=== PATIENT | female | born 1980 | race Caucasian/White ===

== ENCOUNTER 2021-11-10 18:04 | Inpatient (IN) | payer BC ==
[2021-11-10 20:51] LABS: BASO % 0.4 % (0-2.0); EOS % 3.9 % (0-4.5); HEMATOCRIT 30.7 % (32.4-45.2); HEMOGLOBIN 10.3 GM/dL (10.7-15.3); LYMPH % 18.1 % (8-40); MCH 27.8 pg (25.7-33.7); MCHC 33.4 g/dl (32.0-36.0); MEAN CELL VOLUME 83.2 fl (80-96); MEAN PLT VOLUME 9.9 fl (7.5-11.1); MONO % 6.6 % (3.8-10.2); PLATELET COUNT 195 10^3/uL (134-434); RBC 3.69 M/mm3 (3.60-5.2); RDW 14.4 % (11.6-15.6); WHITE BLOOD COUNT 9.8 K/mm3 (4.0-10.0)
[2021-11-10 20:58] LABS: INR 0.93 (0.83-1.09); PROTHROMBIN TIME (PATIENT) 10.7 SEC (9.7-13.0)
[2021-11-10 21:01] LABS: ACTIVATED PTT 26.2 SECONDS (25.2-36.5)
[2021-11-10 21:04] LABS: CALCIUM 8.3 mg/dL (8.5-10.1)
[2021-11-10 21:09] LABS: CREATININE 0.5 mg/dL (0.55-1.3)
[2021-11-10] MEDS ORDERED: ONDANSETRON 4 MG/2 ML VIAL IVPUSH PRN (21:11)
[2021-11-10] MEDS ORDERED: morphine SULFATE/PF 1 MG/2 ML (2cc Syringe - QUVA) ONE (21:19)
[2021-11-10] MEDS ORDERED: ceFAZolin SODIUM 1 GM VIAL ONE (21:38)
[2021-11-10] MEDS ORDERED: PHENYLEPHRINE HCL 10 MG/1 ML SINGLE DOSE VIAL ONE (21:42)
[2021-11-10] MEDS ORDERED: OXYTOCIN 10 UNITS/ML VIAL ONE ×2 (22:00)
[2021-11-10] MEDS ORDERED: ONDANSETRON 4 MG/2 ML VIAL IVPB PRN (22:49)
[2021-11-10] MEDS ORDERED: oxyCODONE HCL 5 MG TABLET PO PRN (22:49)
[2021-11-10] MEDS ORDERED: IBUPROFEN 800 MG/8 ML IJ IVPB PRN (22:49)
[2021-11-10] MEDS ORDERED: SENNOSIDES/DOCUSATE COMBO (SENNA PLUS) TABLET (UD) PO PRN (22:49)
[2021-11-10 23:05] VITALS: BMI 31.1
[2021-11-11] MEDS ORDERED: OXYTOCIN 20 UNITS in 0.9% NS 20 UNIT/1,000 ML INFUS.BAG IV ONE (00:17)
[2021-11-11] MEDS: OXYTOCIN 20 UNITS in 0.9% NS 20 UNIT/1,000 ML INFUS.BAG IV SCH ×3 (00:21→23:37)
[2021-11-11] MEDS: CEFAZOLIN 2 GM in DEXTROSE 5%-WATER - 50 ML IVPB SCH ×2 (04:53→12:57)
[2021-11-11] MEDS: ACETAMINOPHEN 1000 MG/100 ML BAG IVPB PRN ×2 (06:32→14:37)
[2021-11-11 09:24] LABS: BASO % 0.3 % (0-2.0); EOS % 2.5 % (0-4.5); HEMATOCRIT 28.5 % (32.4-45.2); HEMOGLOBIN 9.5 GM/dL (10.7-15.3); LYMPH % 8.5 % (8-40); MCH 27.8 pg (25.7-33.7); MCHC 33.3 g/dl (32.0-36.0); MEAN CELL VOLUME 83.3 fl (80-96); MEAN PLT VOLUME 9.9 fl (7.5-11.1); MONO % 4.9 % (3.8-10.2); NEUT % 83.8 % (42.8-82.8); PLATELET COUNT 167 10^3/uL (134-434); RBC 3.42 M/mm3 (3.60-5.2); RDW 13.9 % (11.6-15.6); WHITE BLOOD COUNT 10.8 K/mm3 (4.0-10.0)
[2021-11-11 12:11] LABS: SARS-CoV-2 NAA Not Detected (Not Detected)
[2021-11-11] MEDS: SIMETHICONE 80 MG TAB.CHEW (FP) PO PRN (20:45)
[2021-11-11] MEDS ORDERED: BISACODYL 10 MG SUPP.RECT RC PRN (22:49)
[2021-11-11] MEDS: ACETAMINOPHEN 325 MG TABLET (FP) PO PRN (22:51)
[2021-11-11] MEDS: IBUPROFEN 600 MG TABLET (FP) PO PRN (23:39)
[2021-11-12] MEDS: SIMETHICONE 80 MG TAB.CHEW (FP) PO PRN (04:33)
[2021-11-12] MEDS: IBUPROFEN 600 MG TABLET (FP) PO PRN (04:33)
[2021-11-12] MEDS: ACETAMINOPHEN 325 MG TABLET (FP) PO PRN (12:06)
[2021-11-12 12:29] VITALS: BP 131/80; PULSE 64; TEMP 98.4
== END 2021-11-12 13:20 | disposition home or self-care (01) | DRG 788 ==
LOC: JDEL 18:04 → JLDR 19:45 → J3W 11-11 01:10
PROVIDERS: ADMIT Specialist; ATTEND Specialist
PROC: 10D00Z1 Extraction of Products of Conception, Low, Open Approach (ICD-10-PCS; principal; 2021-11-10)
PROC: 0DNW0ZZ Release Peritoneum, Open Approach (ICD-10-PCS; 2021-11-10)
DX: O34.13 Maternal care for benign tumor of corpus uteri, third trimester (principal); O99.62 Diseases of the digestive system complicating childbirth; K66.0 Peritoneal adhesions (postprocedural) (postinfection); Z3A.38 38 weeks gestation of pregnancy; Z37.0 Single live birth; O75.89 Other specified complications of labor and delivery; R03.0 Elevated blood-pressure reading, without diagnosis of hypertension
CPT/HCPCS: 36415; 80048; 85025; 85610; 85730; 86780; 86850; 86900; 86901; 88307-TC; C9803-CS; U0003; U0005

== ENCOUNTER 2023-07-14 06:00 | Inpatient (IN) | payer BC ==
[2023-07-14] MEDS ORDERED: CITRIC ACID/SODIUM CITRATE 30 ML UNIT-DOSE CUP PO ONE (06:30)
[2023-07-14] MEDS ORDERED: ELECTROLYTE-148 SOLN 500 ML IV ONE (06:30)
[2023-07-14 07:04] VITALS: BMI 31.6
[2023-07-14] MEDS ORDERED: OXYTOCIN 10 UNITS/ML VIAL ONE (07:54)
[2023-07-14] MEDS ORDERED: morphine SULFATE/PF 1 MG/2 ML (2cc Syringe - QUVA) ONE (07:54)
[2023-07-14] MEDS ORDERED: ceFAZolin SODIUM 1 GM VIAL ONE (07:54)
[2023-07-14] MEDS ORDERED: FENTANYL CITRATE/PF 50 MCG/ML VIAL ONE (07:54)
[2023-07-14] MEDS ORDERED: PHENYLEPHRINE HCL 10 MG/1 ML SINGLE DOSE VIAL ONE (07:54)
[2023-07-14] MEDS ORDERED: KETOROLAC TROMETHAMINE 30 MG/1 ML VIAL ONE (07:54)
[2023-07-14] MEDS ORDERED: ONDANSETRON 4 MG/2 ML VIAL ONE (07:54)
[2023-07-14] MEDS: ELECTROLYTE-148 SOLN 1,000 ML IV SCH (08:00)
[2023-07-14] MEDS ORDERED: LIGASURE IMPACT TP ONE (08:08)
[2023-07-14] MEDS ORDERED: GLYCOPYRROLATE 0.2 MG/1 ML VIAL ONE (08:54)
[2023-07-14] MEDS ORDERED: oxyCODONE HCL 5 MG TABLET PO PRN (09:38)
[2023-07-14] MEDS ORDERED: IBUPROFEN 800 MG/8 ML IJ IVPB PRN (09:38)
[2023-07-14] MEDS ORDERED: SIMETHICONE 80 MG TAB.CHEW (FP) PO PRN (09:38)
[2023-07-14] MEDS ORDERED: ONDANSETRON 4 MG/2 ML VIAL IVPB PRN (09:38)
[2023-07-14] MEDS: ACETAMINOPHEN 325 MG TABLET (FP) PO SCH ×3 (12:53→23:50)
[2023-07-14] MEDS: OXYTOCIN 20 UNITS in 0.9% NS 20 UNIT/1,000 ML INFUS.BAG IV SCH (16:03)
[2023-07-14] MEDS: CEFAZOLIN SODIUM 2 GM in DEXTROSE 5%-WATER 100 ML IVPB SCH ×2 (16:03→23:42)
[2023-07-14] MEDS: SENNOSIDES/DOCUSATE COMBO (SENNA PLUS) TABLET (UD) PO SCH (21:43)
[2023-07-15 05:53] VITALS: RESP 18
[2023-07-15] MEDS: ACETAMINOPHEN 325 MG TABLET (FP) PO SCH ×3 (06:03→18:30)
[2023-07-15 07:36] LABS: BASO % 0.2 % (0-2.0); EOS % 1.9 % (0-4.5); HEMATOCRIT 30.8 % (32.4-45.2); HEMOGLOBIN 10.2 GM/dL (10.7-15.3); LYMPH % 6.1 % (8-40); MCH 28.5 pg (25.7-33.7); MCHC 33.2 g/dl (32.0-36.0); MEAN CELL VOLUME 85.9 fl (80-96); MEAN PLT VOLUME 10.1 fl (7.5-11.1); MONO % 5.5 % (3.8-10.2); NEUT % 86.3 % (42.8-82.8); PLATELET COUNT 220 10^3/uL (134-434); RBC 3.59 M/mm3 (3.60-5.2); RDW 13.6 % (11.6-15.6); WHITE BLOOD COUNT 13.8 K/mm3 (4.0-10.0)
[2023-07-15] MEDS: ELECTROLYTE-148 SOLN 1,000 ML IV SCH (07:55)
[2023-07-15] MEDS ORDERED: BISACODYL 10 MG SUPP.RECT RC PRN (09:38)
[2023-07-15] MEDS: OXYTOCIN 20 UNITS in 0.9% NS 20 UNIT/1,000 ML INFUS.BAG IV SCH (12:32)
[2023-07-15] MEDS: SENNOSIDES/DOCUSATE COMBO (SENNA PLUS) TABLET (UD) PO SCH (22:20)
[2023-07-15] MEDS: IBUPROFEN 600 MG TABLET (FP) PO PRN (22:24)
[2023-07-16] MEDS: ACETAMINOPHEN 325 MG TABLET (FP) PO SCH ×3 (00:28→12:20)
[2023-07-16] MEDS: IBUPROFEN 600 MG TABLET (FP) PO PRN ×2 (06:02→10:41)
[2023-07-16 09:52] VITALS: BP 128/84; PULSE 76; TEMP 97.8
== END 2023-07-16 11:50 | disposition home or self-care (01) | DRG 785 ==
LOC: JLDR 06:00 → J3W 11:50
PROVIDERS: ADMIT Specialist; ATTEND Specialist
PROC: 10D00Z1 Extraction of Products of Conception, Low, Open Approach (ICD-10-PCS; principal; 2023-07-14)
PROC: 0UT70ZZ Resection of Bilateral Fallopian Tubes, Open Approach (ICD-10-PCS; 2023-07-14)
DX: O34.211 Maternal care for low transverse scar from previous cesarean delivery (principal); Z30.2 Encounter for sterilization; Z3A.38 38 weeks gestation of pregnancy; Z37.0 Single live birth
CPT/HCPCS: 36415; 85025; 88304-TC; 88305-TC; 88307-TC; 94010